=== PATIENT | female | born 1945 | race Caucasian/White ===

== ENCOUNTER 2017-12-27 22:00 | Inpatient (IN) | payer MEDICARE ==
[~2017-12-27] VITALS: Ht 162.6 cm; Wt 68.0 kg
--- NOTE | ~2017-12-27 | CN ---
PATIENT NAME:CAT MUNOZ MEDICAL RECORD: [id number] : 45 LOCATION:D[facility] ADMIT DATE: 12/28/17 ACCOUNT: [id number] CONSULTING PHYSICIAN: IRENE HORTON MD REFERRING PHYSICIAN: VIOLET MUNIZ MD DATE OF CONSULTATION: 12/28/2017 CONSULT REQUESTING PHYSICIAN: Violet Muniz MD REASON FOR CONSULTATION: Pneumonia, chest pain, shortness of breath. HISTORY OF PRESENT ILLNESS: Ms. Munoz is a 72-year-old female who is sick for the last few days, she was running low grade fever. Yesterday, she noted retrosternal and left-sided chest pain, which was pleuritic in nature. The patient was also having some shortness of breath, came into the ER, workup showed she has infiltrate in the lingula and the left lower lobe and the CTA also showed multiple pulmonary nodules. The patient denies any weight loss. There is no significant sputum and cough production. According to the patient, she follows at [facility] and on the last visit she had was September this year. She has regular chest radiograph over there but the patient does not recall that she has any pulmonary nodules. REVIEW OF SYSTEMS: As in history of present illness. PAST MEDICAL HISTORY: 1. Hypertension. 2. Gastroesophageal reflux disease. 3. Possible chronic obstructive pulmonary disease. 4. Obstructive sleep apnea. She is on CPAP machine. ALLERGIES: SHE IS ALLERGIC TO SULFA. MEDICATIONS: On [place] is reviewed. PERSONAL AND SOCIAL HISTORY: The patient is a nonsmoker, nondrinker. FAMILY HISTORY: Noncontributory. PHYSICAL EXAMINATION: GENERAL: Now, the patient is lying comfortably in bed. She is not in acute distress. VITAL SIGNS: The blood pressure is 151/67, pulse is 80, respirations 17, temperature 97.9, SPO2 93% on 2 liters nasal cannula. HEENT: Conjunctivae is pink. Sclerae are not icteric. NECK: Supple, no JVD. CHEST: Excursion is minimal on both sides. There are crackles on the left side. No wheezing. HEART: Rhythm regular, normal sound, no murmur. ABDOMEN: Soft, bowel sounds present. No hepatosplenomegaly. RECTAL: Deferred. EXTREMITIES: No cyanosis, no clubbing, no pedal edema. SKIN: Warm, normal turgor. CENTRAL NERVOUS SYSTEM: The patient is awake and alert. There are no obvious cranial nerve abnormality. The gait was not tested. CONSULT REPORT [id number] CAT MUNOZ IMAGING: CTA of the chest, there were no pulmonary embolism. There are multiple pulmonary nodules bilaterally. There is infiltrate in the lingula and left lower lobe. There is also mediastinal lymphadenopathy with some calcification. OTHER LABORATORY DATA: CBC: The WBC is 9.9, hemoglobin 14.1, hematocrit is 41.8, the platelet count 188. Chemistry: Sodium is 140, potassium is 4.2. The cardiac enzymes are negative. ProBNP is 710. IMPRESSION: 1. Pneumonia, left lower lobe and left upper lobe lingula, most likely community-acquired pneumonia. 2. Chest pain, possible pleurisy. 3. Multiple pulmonary nodules with mediastinal lymphadenopathy, the differential diagnoses include, but not limited to rule out fungal infection, sarcoidosis, possible malignancy, possible mycobacterial infection. 4. Gastroesophageal reflux disease. 5. Obstructive sleep apnea. RECOMMENDATION: 1. Continue Zithromax and Rocephin IV. 2. Follow up chest labs and chest radiograph. 3. Check fungal serology ACES level, urine histoplasma antigen. 4. We will get the medical record from the [facility] on Saturday from the doctor's office. 5. The patient will need a PET scan as an outpatient. If the pneumonia is not resolving, she will need a bronchoscopy. Dr. Muniz, thank you for involving me in the care of Ms. Munoz. TRANSINT:[id number] Voice Confirmation ID: [id number] DOCUMENT ID: [id number] IRENE HORTON MD at 1348 CC: MERCEDEZ POP [id number] DICTATION DATE: 12/28/17 1557 TRAFFIC MAINTENANCE OFFICER: 12/28/17 1700 DIS IN 01/01/18 [place] [id number] [place] [id number]
--- NOTE | ~2017-12-27 | EC ---
PATIENT:CAT MUNOZ DATE OF SERVICE: 12/28/17 SEX: F MEDICAL RECORD: [id number] DATE OF : 45 LOCATION:D[facility] AGE OF PATIENT: 72 ADMISSION DATE: 12/28/17 REFERRING PHYSICIAN: INTERPRETING PHYSICIAN: LORETA PACHECO MD ECHOCARDIOGRAM REPORT ECHO CHARGES 4 ECHO COMPLETE Date: 12/28 CLINICAL DIAGNOSIS: ECHOCARDIOGRAPHIC MEASUREMENTS (adult normal given) AC root (d.<3.7cm) 2.9 cm LV Septum d (<1.2 cm> 1.5 cm Valve Excursion 1.8 cm LV Septum (systole) 2.2 cm Left Atria (s.<4.0cm> 3.6 cm LVPW d(<1.2cm) 1.4 cm RV (d.<2.3cm) 2.0 cm LVPW (sytole) 1.8 cm LV diastole(<5.6CM) 4.7 cm MV E-F(>70mm/sec) cm LV systole 3.0 cm LVOT Diameter 1.8 cm MV exc.(>10mm) cm Est.ejection fraction (50-75%) % DOPPLER: LVIT cm/sec A 112 cm/sec E 70.0 cm/sec LA cm/sec RVSP 39.0 mmHg LVOT 92.0 cm/sec AOP1/2T m/s Asc. Ao 141 cm/sec RVOT 71.0 cm/sec RA cm/sec PA 87.0 cm/sec AV Gradient Peak 8.0 mmHg AV Mean 3.7 mmHg AV Area 1.4 cm MV Gradient Peak 5.1 mmHg MV Mean 1.7 mmHg MV Area cm COMMENTS: Cotton Candy Maker: Scott VILLATOROOE Asphalt Still Operator: 4 Dr. Pacheco TAPE# PACS Pericardial Effusion N DATE OF SERVICE: PROCEDURE: Transthoracic echocardiogram. FINDINGS: 1. The left ventricle has mild left ventricular hypertrophy. Inflow characteristic is consistent with diastolic dysfunction. Ejection fraction is 60% to 65%. 2. The left atrium is normal. 3. The aortic valve is normal. ECHOCARDIOGRAM REPORT [id number] CAT MUNOZ 4. The mitral valve is normal with mild mitral regurgitation. 5. The tricuspid valve is normal with [id number] tricuspid regurgitation. RVSP is 39 mmHg. 6. The pericardium is normal. 7. The right ventricle is normal. 8. The right atrium is normal. CONCLUSIONS: The patient has evidence of mild hypertensive heart disease, otherwise normal echocardiogram for the patient's stated age. TRANSINT:[id number] Voice Confirmation ID: [id number] DOCUMENT ID: [id number] LORETA PACHECO MD at 1147 CC: [id number] DICTATION DATE: 12/29/171821 ACQUISITION ANALYST: 12/29/171945 DIS IN 01/01/18 [place] [id number] [place] [address]
[2017-12-27] MEDS ORDERED: METOPROLOL TART25 MG PO (22:04)
[2017-12-27] MEDS ORDERED: LISINOPRIL10 MG PO (22:05)
[2017-12-27] MEDS ORDERED: ASPIRIN81 MG PO (22:05)
[2017-12-27 23:10] LABS: BASOPHILS 0.3 % (0-2); EOSINOPHILS 2.8 % (0-7); HEMATOCRIT 41.8 % (36.0-48.0); HEMOGLOBIN 14.1 g/dL (12-16); IMMATURE GRANULOCYTES 0.1 % (0-5); MCH 31.9 pg (26.0-34.0); MCHC 33.7 g/dL (31.0-37.0); MCV 94.6 fL (80.0-100.0); MEAN PLATELET VOLUME 9.1 fL (7.4-10.4); MONOCYTES 11.3 % (2-11); NEUTROPHILS 73.5 % (40-80); RBC 4.42 10x6/uL (4.00-5.40); RDW 13.2 % (11.5-14.5); WBC 9.9 10x3/uL (4.8-10.8)
[2017-12-27 23:16] LABS: PLATELET COUNT 188 10x3/uL (130-400)
[2017-12-27 23:28] LABS: INR 1.02 (0.85-1.17)
[2017-12-27 23:29] LABS: ALKALINE PHOSPHATASE 115 U/L (46-116); ALT (SGPT) 11 U/L (10-68); APTT 34.6 SECONDS (22.8-39.4); BILIRUBIN - TOTAL 0.32 mg/dL (0.2-1.3); CALC OSMOLALITY 284 mosm/kg (275-300); CHLORIDE - SERUM 107 mmol/L (98-107); GLUCOSE 130 mg/dL (74-106); POTASSIUM - SERUM 4.2 mmol/L (3.5-5.1); PROTEIN - SERUM 6.8 g/dL (6.4-8.2); SODIUM 140 mmol/L (136-145); UREA NITROGEN 23 mg/dL (7-18); eGFR NON AFRICAN AMERICAN 58 mL/min (90-120)
[2017-12-27 23:40] LABS: CKMB 0.2 U/L (0.0-3.6); CREATINE KINASE 52 UL (21-215); PRO BNP 710 pg/mL (0-125); THYROID STIMULATING HORMONE 1.12 uIU/mL (0.36-3.74)
[2017-12-27 23:45] VITALS: BP 141/74
[2017-12-27 23:48] LABS: TROPONIN-I < 0.017 ng/mL (0.000-0.060)
[2017-12-28 00:45] VITALS: BP 136/81
[2017-12-28 04:29] VITALS: BP 151/67
[2017-12-28] MEDS ORDERED: [UNRECOGNIZED DRUG - REMARK] PO (05:43)
[2017-12-28 05:55] VITALS: BP 151/67; BMI 25.4
[2017-12-28 08:07] VITALS: BP 120/62
[2017-12-28 09:57] LABS: BASOPHILS 0.3 % (0-2); EOSINOPHILS 6.2 % (0-7); HEMOGLOBIN 13.9 g/dL (12-16); IMMATURE GRANULOCYTES 0.2 % (0-5); LYMPHOCYTES 28.8 % (15-50); MCHC 33.1 g/dL (31.0-37.0); MONOCYTES 15.1 % (2-11); NEUTROPHILS 49.4 % (40-80); PLATELET COUNT 181 10x3/uL (130-400); RBC 4.34 10x6/uL (4.00-5.40); RDW 13.3 % (11.5-14.5)
[2017-12-28 09:59] LABS: MCV 96.8 fL (80.0-100.0); WBC 5.8 10x3/uL (4.8-10.8)
[2017-12-28 13:06] LABS: CKMB 0.3 U/L (0.0-3.6); CREATINE KINASE 83 UL (21-215); TROPONIN-I < 0.017 ng/mL (0.000-0.060)
[2017-12-28 14:41] VITALS: Ht 162.6 cm; Wt 68.0 kg
[2017-12-28 16:59] LABS: APPEARANCE CLEAR (CLEAR); COLOR YELLOW (YELLOW)
[2017-12-28 17:00] LABS: BILIRUBIN NEGATIVE (NEGATIVE); GLUCOSE NEGATIVE (NEGATIVE); KETONE NEGATIVE (NEGATIVE); NITRITE NEGATIVE (NEGATIVE); PROTEIN NEGATIVE (NEGATIVE); UROBILINOGEN NORMAL (NORMAL)
[2017-12-28 17:01] LABS: BACTERIA FEW /hpf (NONE SEEN); EPITHELIAL CELLS 0-5 /hpf (0-5); MUCUS <1+ /lpf (NONE SEEN); RED CELLS - URINE 0-5 /hpf (0-5)
[2017-12-28 18:29] VITALS: BP 162/77
[2017-12-28 18:56] LABS: CKMB 0.5 U/L (0.0-3.6); CREATINE KINASE 38 UL (21-215); TROPONIN-I < 0.017 ng/mL (0.000-0.060)
[2017-12-28 21:08] VITALS: BP 136/67
[2017-12-29 01:06] LABS: CKMB 0.5 U/L (0.0-3.6); CREATINE KINASE 39 UL (21-215)
[2017-12-29 01:08] VITALS: BP 152/69
[2017-12-29 01:08] LABS: TROPONIN-I < 0.017 ng/mL (0.000-0.060)
[2017-12-29 04:45] VITALS: BP 126/67
[2017-12-29 05:36] LABS: BASOPHILS 0.2 % (0-2); EOSINOPHILS 3.2 % (0-7); HEMATOCRIT 39.4 % (36.0-48.0); IMMATURE GRANULOCYTES 0.2 % (0-5); LYMPHOCYTES 24.7 % (15-50); MCH 31.4 pg (26.0-34.0); MCV 95.2 fL (80.0-100.0); MONOCYTES 15.4 % (2-11); NEUTROPHILS 56.3 % (40-80); PLATELET COUNT 194 10x3/uL (130-400); RBC 4.14 10x6/uL (4.00-5.40); WBC 5.9 10x3/uL (4.8-10.8)
[2017-12-29 06:02] LABS: ALBUMIN 2.6 g/dL (3.4-5.0); ANION GAP 11.7 mmol/L (8-16); BILIRUBIN - TOTAL 0.3 mg/dL (0.2-1.3); CALCIUM 8.7 mg/dL (8.5-10.1); CARBON DIOXIDE 25.2 mmol/L (21.0-32.0); CREATININE - SERUM 0.8 mg/dL (0.6-1.3); POTASSIUM - SERUM 3.9 mmol/L (3.5-5.1)
[2017-12-29 08:00] VITALS: BP 160/71
[2017-12-29 12:15] VITALS: BP 148/71
[2017-12-29 16:00] VITALS: BP 110/60
[2017-12-29 20:46] VITALS: BP 160/61
[2017-12-30 05:03] VITALS: BP 104/52
[2017-12-30 05:20] LABS: BASOPHILS 0.6 % (0-2); EOSINOPHILS 6.7 % (0-7); HEMATOCRIT 38.1 % (36.0-48.0); HEMOGLOBIN 12.5 g/dL (12-16); IMMATURE GRANULOCYTES 0.2 % (0-5); LYMPHOCYTES 21.9 % (15-50); MCH 31.5 pg (26.0-34.0); MCHC 32.8 g/dL (31.0-37.0); MEAN PLATELET VOLUME 9.3 fL (7.4-10.4); MONOCYTES 13.3 % (2-11); NEUTROPHILS 57.3 % (40-80); PLATELET COUNT 184 10x3/uL (130-400); RBC 3.97 10x6/uL (4.00-5.40); RDW 13.3 % (11.5-14.5); WBC 6.4 10x3/uL (4.8-10.8)
[2017-12-30 05:22] LABS: ALBUMIN 2.8 g/dL (3.4-5.0); ANION GAP 13.3 mmol/L (8-16); BILIRUBIN - TOTAL 0.2 mg/dL (0.2-1.3); CALCIUM 8.4 mg/dL (8.5-10.1); CARBON DIOXIDE 24.3 mmol/L (21.0-32.0); CREATININE - SERUM 0.9 mg/dL (0.6-1.3); POTASSIUM - SERUM 3.6 mmol/L (3.5-5.1); PROTEIN - SERUM 6.1 g/dL (6.4-8.2)
[2017-12-30 12:00] VITALS: BP 147/77
[2017-12-30 16:00] VITALS: BP 135/72
[2017-12-30 20:43] VITALS: BP 151/70
[2017-12-31 04:22] VITALS: BP 166/87
[2017-12-31 05:26] LABS: BASOPHILS 0.7 % (0-2); EOSINOPHILS 7.6 % (0-7); HEMATOCRIT 39.3 % (36.0-48.0); HEMOGLOBIN 13.1 g/dL (12-16); IMMATURE GRANULOCYTES 0.2 % (0-5); LYMPHOCYTES 23.3 % (15-50); MCH 31.9 pg (26.0-34.0); MCHC 33.3 g/dL (31.0-37.0); MCV 95.6 fL (80.0-100.0); MEAN PLATELET VOLUME 9.1 fL (7.4-10.4); MONOCYTES 13.1 % (2-11); NEUTROPHILS 55.1 % (40-80); PLATELET COUNT 196 10x3/uL (130-400); RBC 4.11 10x6/uL (4.00-5.40); RDW 13.3 % (11.5-14.5); WBC 5.4 10x3/uL (4.8-10.8)
[2017-12-31 05:33] LABS: ALBUMIN 2.8 g/dL (3.4-5.0); BILIRUBIN - TOTAL 0.29 mg/dL (0.2-1.3); CALCIUM 8.8 mg/dL (8.5-10.1); CARBON DIOXIDE 26.6 mmol/L (21.0-32.0); CREATININE - SERUM 0.9 mg/dL (0.6-1.3); POTASSIUM - SERUM 3.6 mmol/L (3.5-5.1); PROTEIN - SERUM 6.3 g/dL (6.4-8.2)
[2017-12-31 08:30] VITALS: BP 130/78
[2017-12-31 12:44] VITALS: BP 150/74
[2017-12-31 15:49] VITALS: BP 162/79
[2017-12-31 20:00] VITALS: BP 150/87
[2018-01-01 00:41] VITALS: BP 164/86
[2018-01-01 03:12] LABS: ANGIOTENSIN CONVERTING ENZYME < 15 U/L (14-82)
[2018-01-01 04:00] VITALS: BP 146/85
[2018-01-01 06:23] LABS: BASOPHILS 0.7 % (0-2); EOSINOPHILS 10.2 % (0-7); HEMOGLOBIN 13.9 g/dL (12-16); LYMPHOCYTES 27.8 % (15-50); MCH 31.2 pg (26.0-34.0); MCHC 33.1 g/dL (31.0-37.0); MCV 94.4 fL (80.0-100.0); MEAN PLATELET VOLUME 9.1 fL (7.4-10.4); MONOCYTES 13.5 % (2-11); NEUTROPHILS 47.8 % (40-80); PLATELET COUNT 217 10x3/uL (130-400); RBC 4.45 10x6/uL (4.00-5.40); RDW 13.4 % (11.5-14.5); WBC 5.4 10x3/uL (4.8-10.8)
[2018-01-01 07:26] LABS: ALBUMIN 3.1 g/dL (3.4-5.0); ANION GAP 14.5 mmol/L (8-16); BILIRUBIN - TOTAL 0.2 mg/dL (0.2-1.3); CALCIUM 8.9 mg/dL (8.5-10.1); CARBON DIOXIDE 24.6 mmol/L (21.0-32.0); CREATININE - SERUM 0.8 mg/dL (0.6-1.3); POTASSIUM - SERUM 4.1 mmol/L (3.5-5.1); PROTEIN - SERUM 6.7 g/dL (6.4-8.2)
[2018-01-01 07:41] VITALS: BP 167/87
[2018-01-01 11:17] LABS: ANA REFLEX - DIRECT Negative (Negative)
[2018-01-01 12:30] VITALS: BP 143/82
[2018-01-01] MEDS ORDERED: LEVAQUIN750 MG PO (14:19)
[2018-01-01] MEDS ORDERED: IPRAT-ALBUT 0.5-3 ML UPD (15:41)
[2018-01-01 15:45] VITALS: BP 150/74
[2018-01-02 20:09] LABS: FUNGAL - ASP FLAVUS Negative (Neg:<1:1); FUNGAL - ASP NIGER Negative (Neg:<1:1); FUNGAL - ASPER FUMIGATUS Negative (Neg:<1:1)
[2018-01-03 03:11] LABS: IMMUNOGLOBULIN E 26 IU/mL (0-100)
== END 2018-01-01 17:04 | disposition home or self-care (01) | DRG 190 ==
LOC: D.ER 22:00 → D.MS 12-28 02:30
PROVIDERS: Emergency Medicine; Family Medicine; Internal Medicine Cardiovascular Disease; Internal Medicine Pulmonary Disease
DX: J44.0 Chronic obstructive pulmonary disease with (acute) lower respiratory infection (principal); J18.9 Pneumonia, unspecified organism; J82 Pulmonary eosinophilia, not elsewhere classified; I10 Essential (primary) hypertension; R79.89 Other specified abnormal findings of blood chemistry; E03.9 Hypothyroidism, unspecified; I25.10 Atherosclerotic heart disease of native coronary artery without angina pectoris; R91.8 Other nonspecific abnormal finding of lung field; R59.1 Generalized enlarged lymph nodes; G47.33 Obstructive sleep apnea (adult) (pediatric); K21.9 Gastro-esophageal reflux disease without esophagitis

== ENCOUNTER → 2018-04-22 13:35 | Outpatient (CLI) | payer MEDICARE ==
[2017-12-28 14:41] VITALS: BMI 25.4
[~2018-04-22 13:35] MED LIST: ASPIRIN81 MG PO; IPRAT-ALBUT 0.5-3 ML UPD; LEVAQUIN750 MG PO; LISINOPRIL10 MG PO; METOPROLOL TART25 MG PO; [UNRECOGNIZED DRUG - REMARK] PO
[2018-04-22 14:05] LABS: CREATININE - SERUM 0.8 mg/dL (0.6-1.3)
== END | disposition home or self-care (01) ==
LOC: D.LAB 13:35 → D.CT 14:00
PROVIDERS: Internal Medicine Pulmonary Disease
DX: R91.8 Other nonspecific abnormal finding of lung field (principal)

== ENCOUNTER → 2019-04-20 13:09 | Outpatient (CLI) | payer MEDICARE ==
[2017-12-28 14:41] VITALS: BMI 25.4
== END | disposition home or self-care (01) ==
LOC: D.RT 03-11 10:00 → D.CT 03-11 10:45 → D.RT 13:09
PROVIDERS: ATTEND Internal Medicine Pulmonary Disease
DX: J44.9 Chronic obstructive pulmonary disease, unspecified (principal)

== ENCOUNTER → 2019-09-07 09:11 | Outpatient (CLI) | payer MEDICARE ==
[2017-12-28 14:41] VITALS: BMI 25.4
--- NOTE | 2019-09-09 13:11 | EC ---
PATIENT:CAT MUNOZ DATE OF SERVICE: 09/07/19 SEX: F MEDICAL RECORD: [id number] DATE OF : 45 LOCATION:[facility] AGE OF PATIENT: 74 ADMISSION DATE: 09/07/19 REFERRING PHYSICIAN: INTERPRETING PHYSICIAN: WYATT RIVERA MD ECHOCARDIOGRAM REPORT ECHO CHARGES 4 ECHO COMPLETE Date: 09/07/19 CLINICAL DIAGNOSIS: CAD/PVC/HTN ECHOCARDIOGRAPHIC MEASUREMENTS (adult normal given) AC root (d.<3.7cm) 3.1 cm LV Septum d (<1.2 cm> 1.1 cm Valve Excursion 1.5 cm LV Septum (systole) 1.3 cm Left Atria (s.<4.0cm> 3.4 cm LVPW d(<1.2cm) 1.2 cm RV (d.<2.3cm) 2.5 cm LVPW (sytole) 1.54 cm LV diastole(<5.6CM) 4.3 cm MV E-F(>70mm/sec) cm LV systole 3.2 cm LVOT Diameter 2.0 cm MV exc.(>10mm) 1.1 cm Est.ejection fraction (50-75%) % DOPPLER: LVIT cm/sec A 80.0 cm/sec E 51.0 cm/sec LA cm/sec RVSP 31 mmHg LVOT 102 cm/sec AOP1/2T m/s Asc. Ao 143 cm/sec RVOT cm/sec RA cm/sec PA cm/sec AV Gradient Peak 8.13 mmHg AV Mean 4.22 mmHg AV Area 2.3 cm MV Gradient Peak 3.62 mmHg MV Mean 1.66 mmHg MV Area cm COMMENTS: Tumbler Tender: 2 PORTIA SANCHEZ Turn Down Man: 3 Dr. Farrell TAPE# PACS Pericardial Effusion N DATE OF SERVICE: Adequate 2D, color flow, spectral Doppler, and M-Mode. No LVH. LV internal dimension is normal. Wall motion is normal. EF is greater than or equal to 55%. Aortic valve is tricuspid. No evidence of evidence of stenosis by Doppler interrogation. The left atrium is normal at 3.4 cm. Mitral valve shows no prolapse. Trace MR. Right-sided chambers are grossly normal. Mild TR. ECHOCARDIOGRAM REPORT [id number] CAT MUNOZ TRANSINT:[id number] Voice Confirmation ID: [id number] DOCUMENT ID: [id number] WYATT RIVERA MD at 1311 CC: [id number] DICTATION DATE: 09/08/19 1316 TUTOR: 09/08/19 2151 DEP CLI 09/07/19 [place] [id number] [place] [id number]
== END | disposition home or self-care (01) ==
LOC: D.HCCECHO 09:11
PROVIDERS: ATTEND Internal Medicine Interventional Cardiology
DX: I25.10 Atherosclerotic heart disease of native coronary artery without angina pectoris (principal)

== ENCOUNTER → 2020-04-19 13:21 | Outpatient (CLI) | payer MEDICARE ==
[2017-12-28 14:41] VITALS: BMI 25.4
== END | disposition home or self-care (01) ==
LOC: D.LAB 13:21
PROVIDERS: ATTEND Internal Medicine Pulmonary Disease
DX: Z11.59 Encounter for screening for other viral diseases (principal)

== ENCOUNTER → 2020-04-22 13:50 | Outpatient (CLI) | payer MEDICARE ==
[2017-12-28 14:41] VITALS: BMI 25.4
== END | disposition home or self-care (01) ==
LOC: D.RT 04-18 13:00
PROVIDERS: ATTEND Internal Medicine Pulmonary Disease
DX: J44.9 Chronic obstructive pulmonary disease, unspecified (principal); Z11.59 Encounter for screening for other viral diseases

== ENCOUNTER → 2020-12-21 12:42 | Outpatient (CLI) | payer MEDICARE ==
[2020-07-27 14:02] VITALS: BMI 25.4
--- NOTE | 2020-12-23 09:25 | EC ---
PATIENT:CAT MUNOZ DATE OF SERVICE: 12/21/20 SEX: F MEDICAL RECORD: [id number] DATE OF : 45 LOCATION:D[facility] AGE OF PATIENT: 75 ADMISSION DATE: 12/21/20 REFERRING PHYSICIAN: INTERPRETING PHYSICIAN: WYATT RIVERA MD ECHOCARDIOGRAM REPORT ECHO CHARGES 4 ECHO COMPLETE Date: 12/21/20 CLINICAL DIAGNOSIS: CAD/ASSESS EF AND MITRAL REGURG ECHOCARDIOGRAPHIC MEASUREMENTS (adult normal given) AC root (d.<3.7cm) 3.2 cm LV Septum d (<1.2 cm> 1.2 cm Valve Excursion 1.0 cm LV Septum (systole) 1.4 cm Left Atria (s.<4.0cm> 3.8 cm LVPW d(<1.2cm) 1.2 cm RV (d.<2.3cm) 3.6 cm LVPW (sytole) 1.6 cm LV diastole(<5.6CM) 4.8 cm MV E-F(>70mm/sec) cm LV systole 3.5 cm LVOT Diameter 2.0 cm MV exc.(>10mm) 1.1 cm Est.ejection fraction (50-75%) % DOPPLER: LVIT cm/sec A 102.0cm/sec E 61.0 cm/sec LA cm/sec RVSP 33 mmHg LVOT 87 cm/sec AOP1/2T m/s Asc. Ao 125 cm/sec RVOT 69 cm/sec RA cm/sec PA 97 cm/sec AV Gradient Peak 6.30 mmHg AV Mean 3.42 mmHg AV Area 2.1 cm MV Gradient Peak 4.25 mmHg MV Mean 1.50 mmHg MV Area cm COMMENTS: Split Leather Department Supervisor: 2 PORTIA SANCHEZ Sales Development Consultant: 3 Dr. Farrell TAPE# pacs Pericardial Effusion N DATE OF SERVICE: FINDINGS: Borderline LVH. LV internal dimensions are normal. Wall motion is normal. EF is greater than or equal to 55%. Aortic valve is tricuspid. No evidence of stenosis by Doppler interrogation. Left atrium is normal at 3.8 cm. Mitral valve shows no prolapse. Mild MR. right side is grossly normal. Trace to mild TR. TRANSINT:[id number] Voice Confirmation ID: [id number] DOCUMENT ID: [id number] ECHOCARDIOGRAM REPORT [id number] CAT MUNOZ WYATT RIVERA MD at 0925 CC: [id number] DICTATION DATE: 12/22/20 171 IMPORT/EXPORT SPECIALIST: 12/22/20 1831 DEP CLI 12/21/20 [place] [id number] [place] [address]
== END | disposition home or self-care (01) ==
LOC: D.HCCECHO 12:42
PROVIDERS: ATTEND Internal Medicine Interventional Cardiology
DX: I25.10 Atherosclerotic heart disease of native coronary artery without angina pectoris (principal)